=== PATIENT | female | born 1955 | race Caucasian/White ===

== ENCOUNTER 2017-12-31 18:06 | Emergency (ER) | payer OTHER ==
[~2017-12-31] VITALS: Ht 154.9 cm; Wt 71.2 kg
[~2017-12-31 18:06] MED LIST: AMLODIPINE-BEN1 EAC5 PO; AVELOX400 MG PO; BACTRIM,SEPT1 TABLET PO; BYSTOLIC10 MG PO; BYSTOLIC5 MG PO; Bystolic PO; CELEBREX200 MG PO; COUMADIN PO; Coumadin dosing per PO; DONEPEZIL HCL5 MG PO; ENDOCET 10-3251 EACH PO; ENDOCET 5-3251 EAC1 PO; ENDOCET 5-3251 EACH PO; FEOSOL325 MG PO; GABAPENTIN300 MG PO; LACTINEX,FLO1 PACKET PO; LOTREL 10/41 CAPSULE PO; MELOXICAM7.5 MG PO; NASONEX17 GM BOTH NARES; SENOKOT S,PE1 TABLET PO; VITAMIN D5000 INTUN PO; VOLTAREN75 MG PO; Vitamin B-12 PO
[2017-12-31 20:07] VITALS: BP 190/77
== END 2017-12-31 20:08 | disposition home or self-care (01) ==
LOC: EME 18:06
DX: S90.121A Contusion of right lesser toe(s) without damage to nail, initial encounter (principal); W22.8XXA Striking against or struck by other objects, initial encounter; Y93.01 Activity, walking, marching and hiking; Y92.009 Unspecified place in unspecified non-institutional (private) residence as the place of occurrence of the external cause; I10 Essential (primary) hypertension; F17.200 Nicotine dependence, unspecified, uncomplicated; Z88.0 Allergy status to penicillin; Z88.5 Allergy status to narcotic agent; Z88.1 Allergy status to other antibiotic agents
CPT/HCPCS: 73660; 99281; 99282

== ENCOUNTER 2018-03-12 22:55 | Observation (INO) | payer OTHER ==
[~2018-03-12] VITALS: Ht 154.9 cm; Wt 70.9 kg
[~2018-03-12 22:55] MED LIST changes: -ENDOCET 10-3251 EACH PO
[2018-03-12 23:35] LABS: HEMATOCRIT 37.4 % (36.0-46.0); HEMOGLOBIN 12.9 G/DL (11.9-15.5); MCH 31.6 PG (29.0-34.0); MCHC 34.5 G/DL (30.0-36.0); MCV 91.7 FL (83-99); PLATELET COUNT 190 K/uL (156-360); RBC DIS.WIDTH-CV 12.3 % (11.8-14.6); RBC DIS.WIDTH-SD 41.5 % (39-53); RED BLOOD COUNT 4.08 M/uL (3.80-5.20); WHITE BLOOD COUNT 12.5 K/uL (4.1-10.2)
[2018-03-12 23:46] LABS: CHLORIDE 106 mEq/L (99-109); POTASSIUM 3.6 mEq/L (3.7-5.4); SODIUM 138 mEq/L (136-147)
[2018-03-12 23:47] LABS: GLUCOSE 114 mg/dL (70-99)
[2018-03-12 23:51] LABS: CREATININE 0.9 mg/dL (0.6-1.3); GFR ESTIMATE (CALCULATED) > 59 mL/min/
[2018-03-12 23:52] LABS: UREA NITROGEN (BUN) 19 mg/dL (9-23)
[2018-03-13] LABS: TROP-I INTERPRETATION NEGATIVE; TROPONIN-I < 0.01 ng/mL (0.0-0.30)
[2018-03-13 02:50] VITALS: BP 175/79
[2018-03-13 05:59] LABS: TROP-I INTERPRETATION NEGATIVE; TROPONIN-I < 0.01 ng/mL (0.0-0.30)
[2018-03-13 08:06] VITALS: BP 134/63
[2018-03-13 11:20] VITALS: BP 156/86
[2018-03-13] MEDS ORDERED: MOBIC15 MG PO (12:20)
[2018-03-13 14:37] LABS: TROP-I INTERPRETATION NEGATIVE; TROPONIN-I < 0.01 ng/mL (0.0-0.30)
[2018-03-13 15:34] VITALS: BP 140/68
== END 2018-03-13 18:49 | disposition home or self-care (01) ==
LOC: EME 22:55 → EDOF 03-13 01:25 → ENRESERV 03-13 01:41 → 4SOUTH 03-13 02:37
PROVIDERS: Family Medicine
DX: R07.9 Chest pain, unspecified (principal); I16.0 Hypertensive urgency; I11.0 Hypertensive heart disease with heart failure; I50.9 Heart failure, unspecified; E78.5 Hyperlipidemia, unspecified; R94.31 Abnormal electrocardiogram [ECG] [EKG]; G89.4 Chronic pain syndrome; Z96.641 Presence of right artificial hip joint; Z98.890 Other specified postprocedural states; M54.9 Dorsalgia, unspecified; F17.210 Nicotine dependence, cigarettes, uncomplicated; Z91.14 Patient's other noncompliance with medication regimen; Z91.19 Patient's noncompliance with other medical treatment and regimen; M19.90 Unspecified osteoarthritis, unspecified site; R26.89 Other abnormalities of gait and mobility; Z90.710 Acquired absence of both cervix and uterus; Z82.5 Family history of asthma and other chronic lower respiratory diseases; Z88.0 Allergy status to penicillin; Z88.1 Allergy status to other antibiotic agents; Z88.5 Allergy status to narcotic agent
CPT/HCPCS: 71046; 71275; 80048; 84484; 85027; 93005; 99281; 99285; G0378; J1940